=== PATIENT | female | born 1985 | race Asian ===

== ENCOUNTER 2019-06-13 07:49 | Inpatient (IN) ==
[2019-06-13] MEDS ORDERED: OXYTOCIN 30 UNITS/500 ML BAG IV PRN ×3 (07:56→20:27)
[2019-06-13 08:18] LABS: Hematocrit (blood only) 34.1 % (37-47); Hemoglobin 11.5 g/dL (12.0-16.0); Mean Corpuscular Volume 97.7 fL (80-100); Mean Platelet Volume 11.9 fL (7.4-10.4); Platelet Count 124 K/uL (130-400); RDW Coefficient of Variation 13.8 % (11.5-14.5); RDW Standard Deviation 49.1 fL (36.4-46.3); Red Blood Count 3.49 M/uL (4.2-5.4); White Blood Count 6.89 K/uL (4.8-10.8)
--- NOTE | 2019-06-13 08:22 | History & Physical Report ---
Date of Service June 13, 2019 Assessment & Plan (1) : Admit to L&D. IV fluids, EFM/toco. Labs. Simons bulb inserted through cervix for cervical ripening and inflated with 35cc sterile water. Patient tolerated well. Will also start pitocin concurrently. History of Present Illness Chief Complaint: induction of labor Primary Care Provider: NO PCP 34yo @ 41 0/7 presents for induction of labor for postdates. Feeling well today, no concerns. No vaginal bleeding, leaking of fluid, or regular ctx. + movement. is complicated by chlamydia infection at the outset, patient and spouse were treated, and SATYA was negative. Allergies Allergy/AdvReac Type Severity Reaction Status Date / Time No Known Drug Allergies Allergy Verified 06/03/19 10:36 Home Medications Home Medications Medication Instructions Recorded Confirmed Type prenat.vits,dat,[id number] PO 05/27/19 06/03/19 History Patient History Medical History History of PCOS History of hypothyroidism History of varicella vaccination Family History Other No pertinent family history Social History marital status: Current Living Situation: Family Current Living Situation Comment: spouse and son Smoking Status: Never smoker Hx Alcohol Use: No Review of Systems All systems reviewed & are unremarkable except as noted in HPI & below Physical Exam Constitutional: WD/WN, vitals as above Respiratory: normal respiratory effort, lungs clear to auscultation no respiratory distress Cardiovascular: Rate/Rhythm: regular rate and regular rhythm Gastrointestinal (Abdomen): Inspection/Auscultation: abdomen normal to inspection Percussion/Palpation: abdomen soft; abdomen nontender Gravid. No s/s chorio or abruption. Skin: no rashes, warm and dry Psychiatric: A+Ox3, euthymic affect Results & Data Vital Signs (Past 12 Hours) Vital Signs Temp Pulse Resp BP 06/13/19 07:56 85 99/61 L 06/13/19 07:54 36.8 C 18 Monitoring External Monitor Cat 1 FHT Tocodynamometer No ctx on toco
[2019-06-13 08:30] LABS: Mean Corpuscular Hgb Conc 33.7 g/dL (32-36)
[2019-06-13] MEDS: LACTATED RINGER'S 1,000 ML IV PRN ×4 (08:32→16:13)
--- NOTE | 2019-06-13 13:36 | Labor Progress Brief Note ---
Date of Service June 13, 2019 Subjective Reason For Note: Routine Evaluation pt feeling stronger ctx. after going to [facility] aquiles fell out Assessment & Plan (1) Post-dates : will see how arom augments pattern, c/w pitocin. categ 1 tracing. Physical Exam Constitutional: WD/WN, vitals as above Genitourinary: Manual OB Exam: + cervical dilation 5 cm, + cervical effacement 50%, + station -2 and + amniotic fluid (AROM) clear OB Exam Monitor Tracing: + external FHT monitor used (130 mod variability), + external uterine monitor used (q2, pit at 13), + category I and + normal FHT variability Results & Data Vital Signs (Past 12 Hours) Vital Signs Temp Pulse Resp BP 06/13/19 13:04 77 105/66 06/13/19 11:06 18 06/13/19 10:30 65 98/62 L 06/13/19 09:40 18 06/13/19 09:10 74 16 84/51 L 06/13/19 07:56 85 99/61 L 06/13/19 07:54 98.2 F 18
[2019-06-13] MEDS ORDERED: fentaNYL citrate 100 MCG/2 ML VIAL ONE (14:06)
[2019-06-13] MEDS ORDERED: ePHEDrine sulfate 50 MG/ML AMP ONE (14:06)
[2019-06-13] MEDS ORDERED: BUPIVACAINE 0.25% 30 ML VIAL ONE (14:06)
[2019-06-13] MEDS ORDERED: fentaNYL 2MCG/ML ROPIV 1.25MG/ML 100 ML BAG EPI ONE (14:07)
[2019-06-13] MEDS ORDERED: ePHEDrine sulfate 50 MG/ML AMP IV PRN (15:12)
[2019-06-13] MEDS ORDERED: NALBUPHINE HCL INJ 10 MG/ML AMP IV PRN (15:12)
[2019-06-13] MEDS ORDERED: PROMETHAZINE HCL 6.25 MG in SODIUM CHLORIDE 0.9% 50 ML IV PRN (15:12)
[2019-06-13] MEDS ORDERED: fentaNYL 2MCG/ML ROPIV 1.25MG/ML 100 ML BAG EPI PRN (15:12)
[2019-06-13] MEDS ORDERED: NALOXONE HCL 0.4 MG/1 ML VIAL/CARP IV PRN (15:12)
[2019-06-13] MEDS ORDERED: DiphenhydrAMINE HCL 50 MG/ML VIAL IV PRN (15:12)
[2019-06-13] MEDS ORDERED: ONDANSETRON INJ 2 MG/ML 2 ML VIAL IV PRN (15:12)
[2019-06-13] MEDS ORDERED: NALOXONE HCL 1 MG in SODIUM CHLORIDE 0.9% 1000ML 1,000 ML IV PRN (15:12)
--- NOTE | 2019-06-13 15:15 | Anesthesiology Consultation ---
Date of Service June 13, 2019 Assessment & Plan (1) Encounter for pre-operative examination: Chart Review Chart Review: Patient NOT seen in Pre Admission Testing and Acceptable Risk for Labor Epidural Consults Requested none ASA ASA2 Proposed Anesthesia Anesthesia Type: Labor Epidural Risk / Benefits Reviewed With: PT / POA / Parent / Guardian, Accepts Plan and Informed Consent Obtained History Height/Weight Height: 5 ft 3 in Weight: 67.018 kg Allergies Allergy/AdvReac Type Severity Reaction Status Date / Time No Known Drug Allergies Allergy Verified 06/03/19 10:36 Medications Home Medications Medication Instructions Recorded Confirmed Last Taken vit no.470-[id number]-conmq 1 tab PO DAILY 06/13/19 06/13/19 Unknown [ Vitamin] Active Medications Generic Name Dose Route Start Last Admin Trade Name Freq PRN Reason Stop Dose Admin Lactated Ringer's 1,000 mls @ 125 mls/hr 06/13/19 07:56 06/13/19 14:11 Lr IV 06/15/19 07:55 999 mls/hr .Q8H PRN Administration L&D Protocol Protocol Oxytocin 30 units in 500 mls @ 11 mls/hr 06/13/19 07:56 06/13/19 12:10 Pitocin IV 06/15/19 07:55 0.66 units/hr .Q24H PRN 11 mls/hr Labor Induction/Augmentation Titration Protocol 0.66 UNITS/HR NPO Date Last Intake of Fluids: 06/13/19 Time Last Intake of Fluids: 12:00 Date Last Intake of Solids: 06/13/19 Time Last Intake of Solids: 06:00 Past Medical History Medical History History of PCOS History of hypothyroidism History of varicella vaccination Exercise / Class Metabolic Activity II 4-5 Yardwork/Stairs/Walk up hill Past Family History Family History Other No pertinent family history Past Surgical History Surgical History No pertinent past surgical history Past Anesthesia History No Hx of Anesthesia Complications and No Family Hx of Anesthesia Complications History of PONV No Hx of PONV and No Hx of Motion Sickness Social History Smoking Status: Never smoker Hx Alcohol Use: No Hx Substance Use: No Physical Exam Vital Signs Last Vital Signs Temp 36.8 C 06/13/19 07:54 Pulse 72 06/13/19 15:12 Resp 18 06/13/19 13:30 BP 93/62 L 06/13/19 15:12 Pulse Ox 97 06/13/19 15:11 ENMT Mouth: no dentition abnormality Thyromental Distance: > or= 3.5 Finger Breadths Mallampati Class: II Neck normal visual inspection Respiratory normal respiratory effort Auscultation: lungs clear to auscultation bilaterally Cardiovascular Rate/Rhythm: regular rate and regular rhythm Psychiatric Orientation: alert Testing Laboratory Results 06/13/19 08:05
--- NOTE | 2019-06-13 17:24 | Labor Progress Brief Note ---
Date of Service June 13, 2019 Subjective Reason For Note: Routine Evaluation comfortable Assessment & Plan (1) Post-dates : (2) Encounter for induction of labor: small amount of cx change, iupc has been in place, pit at 17, mvu's adeq. apparently bladder recently drained for 1000 cc. will cont current care. Physical Exam Constitutional: WD/WN, vitals as above Genitourinary: Manual OB Exam: + cervical dilation (5), + cervical effacement (75%) and + station -1 OB Exam Monitor Tracing: + external FHT monitor used (130 mod variability ), + external uterine monitor used (q2), + category I and + normal FHT variability Results & Data Vital Signs (Past 12 Hours) Vital Signs Temp Pulse Resp BP Pulse Ox 06/13/19 17:16 73 98 06/13/19 17:11 74 98 06/13/19 17:08 67 101/58 L 06/13/19 17:06 79 97 06/13/19 17:01 75 98 06/13/19 16:56 84 98 06/13/19 16:52 83 100/57 L 06/13/19 16:51 73 98 06/13/19 16:46 75 97 06/13/19 16:41 80 97 06/13/19 16:38 73 75/48 L 06/13/19 16:36 69 98 06/13/19 16:31 79 97 06/13/19 16:26 78 98 06/13/19 16:22 86 82/52 L 06/13/19 16:21 73 97 06/13/19 16:16 80 98 06/13/19 16:11 72 98 06/13/19 16:10 99.0 F 18 06/13/19 16:07 81 82/52 L 06/13/19 16:06 71 97 06/13/19 16:01 72 97 06/13/19 15:56 73 98 06/13/19 15:52 70 80/51 L 06/13/19 15:51 71 98 06/13/19 15:46 73 99 06/13/19 15:41 76 98 06/13/19 15:38 74 79/52 L 06/13/19 15:36 74 98 06/13/19 15:35 18 06/13/19 15:31 66 99 06/13/19 15:26 74 99 06/13/19 15:21 74 92/56 L 98 06/13/19 15:18 67 96/61 L 06/13/19 15:16 68 98 06/13/19 15:15 80 101/65 06/13/19 15:12 72 93/62 L 06/13/19 15:11 71 97 06/13/19 15:09 66 94/62 L 06/13/19 15:06 69 99/63 L 98 06/13/19 15:03 69 100/68 06/13/19 15:01 74 98/67 L 100 06/13/19 14:56 75 100 06/13/19 14:51 71 98/63 L 100 06/13/19 14:46 76 99 06/13/19 14:41 74 97 06/13/19 14:36 74 98 06/13/19 14:31 69 100 06/13/19 14:26 73 96 06/13/19 13:30 18 06/13/19 13:04 77 105/66 06/13/19 11:06 18 06/13/19 10:30 65 98/62 L 06/13/19 09:40 18 06/13/19 09:10 74 16 84/51 L 06/13/19 07:56 85 99/61 L 06/13/19 07:54 98.2 F 18
--- NOTE | 2019-06-13 19:31 | Labor Progress Brief Note ---
Date of Service June 13, 2019 Subjective Reason For Note: Other (notified by nursing pt c/c/+2 ) Assessment & Plan (1) Encounter for induction of labor: (2) Post-dates : begin 2nd stage. fhts categ 2. Physical Exam Genitourinary: OB Exam Monitor Tracing: + external FHT monitor used (140 mod variability), + intra-uterine pressure catheter used (q2-3), + category II, + normal FHT variability and + variable decelerations Results & Data Vital Signs (Past 12 Hours) Vital Signs Temp Pulse Resp BP Pulse Ox 06/13/19 19:26 81 98 06/13/19 19:22 76 95/59 L 06/13/19 19:21 80 99 06/13/19 19:16 76 97 06/13/19 19:11 84 98 06/13/19 19:08 81 96/53 L 06/13/19 19:06 72 99 06/13/19 19:01 73 97 06/13/19 18:56 83 97 06/13/19 18:51 81 82/46 L 97 06/13/19 18:46 77 97 06/13/19 18:44 99.0 F 18 06/13/19 18:41 83 97 06/13/19 18:37 79 87/53 L 06/13/19 18:36 80 97 06/13/19 18:31 82 97 06/13/19 18:26 87 97 06/13/19 18:22 76 80/48 L 06/13/19 18:21 78 96 06/13/19 18:16 79 97 06/13/19 18:11 80 97 06/13/19 18:06 80 81/49 L 98 06/13/19 18:01 89 98 06/13/19 17:57 18 06/13/19 17:56 81 99 06/13/19 17:51 80 88/54 L 97 06/13/19 17:46 77 98 06/13/19 17:41 71 98 06/13/19 17:36 82 91/55 L 98 06/13/19 17:31 71 97 06/13/19 17:26 76 98 06/13/19 17:23 71 91/55 L 06/13/19 17:21 83 98 06/13/19 17:16 73 98 06/13/19 17:11 74 98 11/01/19 17:08 67 101/58 L 06/13/19 17:06 79 97 06/13/19 17:01 75 98 06/13/19 17:00 18 06/13/19 16:56 84 98 06/13/19 16:52 83 100/57 L 06/13/19 16:51 73 98 06/13/19 16:46 75 97 06/13/19 16:41 80 97 06/13/19 16:38 73 75/48 L 06/13/19 16:36 69 98 06/13/19 16:31 79 97 06/13/19 16:26 78 98 06/13/19 16:22 86 82/52 L 06/13/19 16:21 73 97 06/13/19 16:16 80 98 06/13/19 16:11 72 98 06/13/19 16:10 99.0 F 18 06/13/19 16:07 81 82/52 L 06/13/19 16:06 71 97 06/13/19 16:01 72 97 06/13/19 15:56 73 98 06/13/19 15:52 70 80/51 L 06/13/19 15:51 71 98 06/13/19 15:46 73 99 06/13/19 15:41 76 98 06/13/19 15:38 74 79/52 L 06/13/19 15:36 74 98 06/13/19 15:35 18 06/13/19 15:31 66 99 06/13/19 15:26 74 99 06/13/19 15:21 74 92/56 L 98 06/13/19 15:18 67 96/61 L 06/13/19 15:16 68 98 06/13/19 15:15 80 101/65 06/13/19 15:12 72 93/62 L 06/13/19 15:11 71 97 06/13/19 15:09 66 94/62 L 06/13/19 15:06 69 99/63 L 98 06/13/19 15:03 69 100/68 06/13/19 15:01 74 98/67 L 100 06/13/19 14:56 75 100 06/13/19 14:51 71 98/63 L 100 06/13/19 14:46 76 99 06/13/19 14:41 74 97 06/13/19 14:36 74 98 06/13/19 14:31 69 100 06/13/19 14:26 73 96 06/13/19 13:30 18 06/13/19 13:04 77 105/66 06/13/19 11:06 18 06/13/19 10:30 65 98/62 L 06/13/19 09:40 18 06/13/19 09:10 74 16 84/51 L 06/13/19 07:56 85 99/61 L 06/13/19 07:54 98.2 F 18
[2019-06-13] MEDS ORDERED: IBUPROFEN 600 MG TAB PO PRN (20:27)
[2019-06-13] MEDS ORDERED: OXYCODONE/ACETAMINOPHEN 5mg/325mg TAB PO PRN (20:27)
[2019-06-13] MEDS ORDERED: ACETAMINOPHEN 325 MG TAB PO PRN (20:27)
[2019-06-13] MEDS ORDERED: OXYTOCIN 20 UNITS in LACTATED RINGER'S 1,000 ML IV SCH (20:30)
--- NOTE | 2019-06-13 20:30 | Delivery Summary ---
Vaginal Delivery Summary Date of Service June 13, 2019 The patient dilated to complete and pushed to deliver a viable male infant s 8 and 9 via over 2nd degree perineal laceration. Mouth and nose bulb suctioned at perineum. Shoulders and body delivered with ease, body cord noted. was vigorous and crying at . Cord clamped at 30 seconds of life and to maternal abdomen where the cord was then doubly clamped and cut. Placenta delivered spontaneously and intact, three-vessel cord. Hemostasis achieved with dilute pitocin and uterine massage. Laceration repaired in usual fashion with 3-0 vicryl. Cervix and sulci intact. EBL 300 cc. Mother and baby stable recovery. [facility] Vaginal Delivery Charge Vaginal Delivery Codes: 02089 global code for the antepartum, delivery, and post-
[2019-06-13] MEDS ORDERED: BENZOCAINE 20% AER SPR 82.5 GM CAN EXT PRN (20:44)
[2019-06-13] MEDS ORDERED: DIPHTHERIA/TETANUS/PERTUSSIS 0.5 ML SYR/VIAL IM ONE (20:44)
[2019-06-13] MEDS ORDERED: SUPERCREAM 0.870% 15 GM JAR EXT PRN (20:44)
[2019-06-13] MEDS ORDERED: HYDROCORTISONE ACETATE 25 MG SUPP PR PRN (20:44)
--- NOTE | 2019-06-13 20:52 | Anesthesia Procedure Note ---
Date of Service June 13, 2019 Anesthesia Post Epidural Note Vital Signs Vital Signs: Temp Pulse Resp BP Pulse Ox 37.5 C 86 18 111/57 L 98 06/13/19 19:07 06/13/19 20:44 06/13/19 19:30 06/13/19 20:44 06/13/19 20:36 Pain Intensity Abdomen: Pain Intensity: 0 Notes Mental Status: alert / awake / arousable Nausea / Vomiting: adequately controlled Pain: adequately controlled Airway Patency, RR, SpO2: stable & adequate BP & HR: stable & adequate Hydration State: stable & adequate Neuraxial Anesthesia: was administered and sensory block is resolving Anesthetic Complications: no major complications apparent and Pt Satisfied with anesthetic care Epidural: Removed without complications and With tip intact
--- NOTE | 2019-06-14 07:05 | Obstetrical Progress Note ---
Date of Service June 14, 2019 Assessment & Plan (1) Normal vaginal delivery: routine pp care. rh pos, ri. , discussed 6wk pp check in office and how to call and schedule that. Day #:: 1 Subjective Ambulation: ambulating normally Voiding: no voiding problems Diet Tolerance:: regular diet Lochia:: Small Feeding Type:: breast feeding no pain issues Physical Exam Constitutional WD/WN, vitals as above Respiratory normal respiratory effort, lungs clear to auscultation Cardiovascular Rate/Rhythm: regular rate and regular rhythm Gastrointestinal (Abdomen) Inspection/Auscultation: abdomen normal to inspection Percussion/Palpation: abdomen soft Fundus firm 1cm down Musculoskeletal nt calves no edema Neurologic grossly normal Psychiatric A+Ox3, euthymic affect Results & Data Vital Signs (Past 12 Hours) Vital Signs Temp Pulse Pulse Resp BP BP Pulse Ox 06/14/19 03:15 97.7 F 74 18 91/49 L 97 06/13/19 23:15 98.1 F 79 18 99/57 L 95 06/13/19 22:31 81 93/52 L 06/13/19 22:30 99.1 F 20 06/13/19 22:22 88 95/50 L 06/13/19 22:07 93 H 95/53 L 06/13/19 22:00 18 06/13/19 21:53 89 93/61 L 06/13/19 21:37 88 92/54 L 06/13/19 21:30 18 06/13/19 21:21 82 102/58 L 06/13/19 21:15 18 06/13/19 21:06 88 94/54 L 06/13/19 21:00 16 06/13/19 20:52 87 90/52 L 06/13/19 20:45 16 06/13/19 20:44 86 111/57 L 06/13/19 20:36 126 H 98 06/13/19 20:31 86 100 06/13/19 20:30 99.1 F 18 06/13/19 20:29 85 98/50 L 06/13/19 20:26 88 99 06/13/19 20:21 90 99 06/13/19 20:16 89 98 06/13/19 20:11 98 H 98 06/13/19 20:09 86 20 80 L 11/01/19 20:07 83 114/62 06/13/19 20:06 87 100 06/13/19 20:03 82 91 06/13/19 20:01 88 69 L 06/13/19 20:00 20 06/13/19 19:58 91 H 89 L 06/13/19 19:56 86 99 06/13/19 19:52 92 H 79 L 06/13/19 19:51 89 93/55 L 99 06/13/19 19:46 92 H 99 06/13/19 19:45 94 H 89 L 06/13/19 19:41 101 H 99 06/13/19 19:37 96 H 100/51 L 06/13/19 19:36 87 90 06/13/19 19:31 86 99 06/13/19 19:30 70 18 91 06/13/19 19:26 81 98 06/13/19 19:22 76 95/59 L 06/13/19 19:21 80 99 06/13/19 19:16 76 97 06/13/19 19:11 84 98 06/13/19 19:08 81 96/53 L 06/13/19 19:07 99.5 F 18 06/13/19 19:06 72 99
[2019-06-14] MEDS: PRENATAL VITAMIN 1 TAB PO SCH (08:53)
[2019-06-14] MEDS: DOCUSATE SODIUM 100 MG CAP PO SCH ×2 (08:53→20:44)
[2019-06-15] MEDS: DOCUSATE SODIUM 100 MG CAP PO SCH (07:51)
[2019-06-15] MEDS: PRENATAL VITAMIN 1 TAB PO SCH (07:51)
--- NOTE | 2019-06-15 08:38 | Obstetrical Progress Note ---
Date of Service June 15, 2019 Assessment & Plan (1) Post-dates : PPD#2 doing well. No concerns. Discussed discharge instructions with help of seismic interpreter. Followup in office 6w. Subjective Ambulation: ambulating normally Voiding: no voiding problems Diet Tolerance:: regular diet Lochia:: Moderate Review of Systems All systems reviewed & are unremarkable except as noted in HPI & below Physical Exam Constitutional WD/WN, vitals as above no acute distress Respiratory normal respiratory effort Cardiovascular Rate/Rhythm: regular rate and regular rhythm Gastrointestinal (Abdomen) Inspection/Auscultation: abdomen normal to inspection; abdomen not distended Percussion/Palpation: abdomen soft Genitourinary OB Exam Abdomen: + fundal height Fundus: + firm; not tender Results & Data Vital Signs (Past 12 Hours) Vital Signs Temp Pulse Resp BP Pulse Ox 06/15/19 00:10 36.5 C 82 16 94/64 L 94
== END 2019-06-15 16:00 | disposition home or self-care (01) | DRG 807 ==
LOC: 4S1 07:49 → 4S2 22:53